=== PATIENT | female | born 1965 | race Caucasian/White ===

== ENCOUNTER 2023-07-28 10:51 | Inpatient (IN) ==
[2023-07-28] MEDS ORDERED: MIDAZOLAM HCL 1 MG/ML 2ML VIAL ONE (11:12)
[2023-07-28] MEDS ORDERED: fentaNYL citrate PF 100 MCG/2 ML VIAL ONE (11:13)
[2023-07-28] MEDS ORDERED: niCARdipine HCL INJ 2.5 MG/ML 10 ML AMP ONE (11:13)
[2023-07-28] MEDS ORDERED: HEPARIN (PORCINE) 1000 UNIT/ML 10 ML (CATH LAB USE ONLY) ONE (11:13)
[2023-07-28] MEDS ORDERED: NITROGLYCERIN/D5W 100MCG/ML 20ML SYR ONE (11:13)
[2023-07-28 11:20] LABS: iSTAT Blood Urea Nitrogen < 3 mg/dl (7-18); iSTAT Carbon Dioxide 16 mmol/L (24-31); iSTAT Chloride 104 mmol/L (101-112); iSTAT Creatinine 0.6 mg/dl (0.6-1.3); iSTAT Glucose 318 mg/dl (70-99); iSTAT Hematocrit 40 % (37-47); iSTAT Hemoglobin 13.6 g/dl (12.0-16.0); iSTAT Ionized Calcium 1.19 mmol/l (1.12-1.32); iSTAT Potassium 5.1 mmol/L (3.3-5.0); iSTAT Sodium 132 mmol/L (135-144)
[2023-07-28] MEDS ORDERED: NOREPINEPHRINE BITARTRATE 1 MG/ML 4 ML VIAL (CATH LAB USE ONLY) IV ONE (11:21)
[2023-07-28] MEDS ORDERED: Standard Conc; 4 MG in 250 mL for HYPOTENSION IV SCH (11:30)
[2023-07-28] MEDS ORDERED: SODIUM BICARB 8.4% INJ 50 MEQ/50 ML SYR IV ONE ×2 (11:35→12:04)
[2023-07-28] MEDS ORDERED: VASOPRESSION #-# Do NOT Titrate #-# Option IV SCH (11:45)
[2023-07-28] MEDS ORDERED: FUROSEMIDE 40 MG/4 ML VIAL IV ONE (12:01)
[2023-07-28 12:04] LABS: INR 1.5 (0.9-1.1); Prothrombin Time 15.6 Seconds (9.0-12.0)
[2023-07-28] MEDS ORDERED: SODIUM BICARBONATE 8.4% 75 MEQ in SODIUM CHLORIDE 0.45 % 1,000 ML IV SCH (12:15)
[2023-07-28 12:19] LABS: Thyroid Stimulating Hormone 11.862 uIu/ml (0.300-4.500)
[2023-07-28 12:24] LABS: Albumin Globulin Ratio 1.5 (0.9-2); Albumin Level 2.3 gm/dl (3.4-5.0); BUN Creatinine Ratio 7.9 (10-20); Bilirubin,Total 0.3 mg/dl (0.2-1.0); Calcium 12.4 mg/dl (8.6-10.3); Creatinine Clr Calc Pharmacy 96.9 ml/min; Globulin 1.5 gm/dl (2.5-4.0); Magnesium 2.7 mg/dl (1.7-2.4); Potassium 4.5 mmol/L (3.5-5.1); Total Protein 3.8 gm/dl (6.0-8.3); Troponin I High Sensitivity 2450.9 pg/ml (0-14)
[2023-07-28] MEDS ORDERED: AMIODARONE 360MG / 200ML D5W (CATH LAB USE ONLY) IV ONE (12:24)
[2023-07-28] MEDS ORDERED: AMIODARONE 150MG / 100ML D5W (CATH LAB USE ONLY) IV ONE (12:25)
[2023-07-28 12:32] LABS: Hemoglobin 12.6 g/dl (12.0-16.0); Mean Corpuscular Hemoglobin 32.5 pg (25.0-34.0); Mean Corpuscular Hgb Conc 30.7 g/dL (32.0-36.0); Mean Corpuscular Volume 105.7 fL (80.0-100.0); Mean Platelet Volume 10.5 fL (9.4-12.4); Nucleated RBC # (auto) 0.06 K/uL (0.00-0.12); Nucleated RBC % (auto) 0.3 %; Platelet Count 73 K/uL (130-400); RDW Coefficient of Variation 12.2 % (11.5-14.5); RDW Standard Deviation 47.8 fL (36.4-46.3); Red Blood Count 3.88 M/uL (4.20-5.40)
[2023-07-28 12:33] LABS: ALC (manual) 3.33 K/uL (1.2-3.4); ANC (manual) 13.88 K/uL (1.4-6.5); Echinocytes 1+; Lymphocytes # (manual) 3.33 K/uL (1.2-3.4); Lymphocytes % (manual) 18 %; Metamyelocytes # (manual) 0.55 K/uL (0-0); Metamyelocytes % (manual) 3 %; Myelocytes # (manual) 0.74 K/uL (0-0); Myelocytes % (manual) 4 %; Neutrophils # (manual) 13.88 K/uL (1.40-6.50); Neutrophils % (manual) 75 %; Platelet Estimate Decreased (Normal); Toxic Vacuolation 3+
--- NOTE | 2023-07-28 12:39 | History & Physical Report ---
Date of Service July 28, 2023 Assessment & Plan (1) Alcohol abuse: Plan: 6-12 beers per day intake, no recent alcohol free days. Last alcohol free day was during a hospital admission at [facility] for low sodium due to poor oral intake/beer potomania more than a year ago. Per family no history of seizures or withdrawal. Thiamine/folic acid daily, AWSS withdrawal symptoms. Unknown last drink. Benzos deferred while observing mental status/anoxic injury. Will monitor for vital instability at this time, reasonable to on continuous EEG monitoring at [facility] (2) Cardiac arrest: Plan: Cardiac arrest, 100% LAD occlusion with resulting VT. S/p ROSC w/ prolonged ACLS Last known normal 8:30 AM 07/28. Was found down unresponsive, apneic, without pulse by scott approximately half hour later. EMS called, initial travel time approximately 20 minutes and in total approximately 2 hours until arrival in ER from initial EMS call. Patient found to be in V-fib. Prior to EMS received 12 epinephrine doses, 2 bicarb, calcium prior to ER arrival. Was intubated in the field. Blood glucose normal. Brief ROSC with subsequent return to PEA with reinstitution of CPR, 5 additional epinephrine, bicarb, calcium, and 300 mg amiodarone bolus with initiation of epinephrine and vasopressin drip. Taken emergently to the dock or pier laborer. Found to have 100% LAD occlusion, s/p 2 LAN Impella placed for augmentation while in P[facility] Initial lactate 17, calcium 12, BSG 318, transaminitis AST 842/ALT 477 Hs-troponin 2450. EKG lateral ST dep while enroute, +multiple episodes of VT and PEA. - K 6.1. s/p fluids + CaGluc. Repeat normalized. While in ER prior to transport to [facility] patient's pupils were fixed and dilated, did not withdrawal to painful stimuli Patient accepted at [facility] for further care, accepted by Dr. Frederick. Pending imminent transport. Admitted to the ICU pending transport Reviewed with family, aware of likely massive WA with prolonged period of downtime which can result in anoxic injury and with guarded/grim prognosis at time of ER assessment. Per scott patient would want to be full code and full measures with additional decisions based on serial exams and progression; they are aware she may have had severe anoxic brain injury and elevated lactate/transaminasis is consistent with multiorgan dysfunction from end organ ischemia. -On reassessment patient remains with ROSC, on epinephrine/vasopressin. Initial VBG 7.1 48/30/16. Trended. Bicarb drip continued. - BSG 318 on admit, no hx DM. ICU hyperglycemia protocol, A1C pending. - CT-H pending (3) Tobacco abuse: History of Present Illness Primary Care Provider: NO PCP Celia Peterson is a 57-year-old female who was found down at approximately 9 AM at home apneic and unresponsive. She presented as a heart alert requiring multiple doses of epinephrine and defibrillation for VT in route to ER. Per report and family: Patient last known normal around 8:30 AM. Was sitting up in bed watching TV, reportedly she felt slightly ill. Was normal the day prior, no recent chest pain, chest pressure, fever/chills/colds or flulike symptoms per fianc. Fianc reports that he went to another car to the house and then returned about half hour later when she was found apneic and unresponsive. He immediately called EMS and performed field CPR until they arrived. Per discussion with ER EMS arrived approximately 20 minutes after initial call. Patient was found to be in ventricular fibrillation and received 2 shocks and 4 doses of epi. Was intubated in the field with a 7.0, [id number] blood glucose was normal. In route to ER Amio drip without bolus was started and patient received an additional 8 doses of epinephrine total. Initial organized rhythm and pulse with BP 120s was achieved but subsequently lost in the ER bay. Patient then received an additional 5 doses of epi, bicarb, calcium, and a 300 mg amiodarone bolus. Placed on epinephrine drip and vasopressin drip was ordered. Proceeded to cardiac P[facility] emergently. By report had diffuse ST depressions/elevations in prehospital EKG. [id number] ER ultrasound with greatly diminished systolic EF Patient had Impella placed while in cardiac [facility] Reportedly with LAD occlusion and possibly circumflex occlusion pending stenting per catheter report at time of HPI Patient is intubated and unresponsive at the bedside on arrival to ER. Col lateral is collected as able from family. Patient's fianc is present at the bedside, reports the patient does not have any known medical history other than a past history of some type of arrhythmia may be flutter but he is not sure if she takes any medications. Notes he did go through her purse and did not find any pill bottles. He does not think she is on any blood thinners. She does not follow with a PCP, he and family do not know if she is seeing a family doctor recently. Last known provider contact was several years ago at [facility] for hip fracture, records requested from that institution. Patient's mother Janel Peterson reportedly in route, may be able to provide additional history. Per fianc patient is a 1 pack/day near lifetime tobacco use Patient does reportedly drink at least 6-12 beers per day, last time she went for more than two thirds 3 days was several years ago during a hip replacement at [facility]. No known withdrawal symptoms/seizures Reportedly with an allergy to "a common medication, but not sure what " Full code Addendum 1256hrs: Pts mother Janel present at [facility]. Confirms pt takes no medications. Past medhx includes hyponatremia for poor PO intake. Allergic to sulfa (rash) and aspirin (rash). Otherwise confirms history from family as above. Full Code. Allergies Allergy/AdvReac Type Severity Reaction Status Date / Time aspirin Allergy Rash Verified 07/28/23 15:09 Sulfa (Sulfonamide Allergy Rash Verified 07/28/23 15:09 Antibiotics) Past Med/Surg History Medical History Dysrhythmia Tobacco abuse Social History Smoking Status: Unknown if ever smoked Preferred Language: Estonian Communication Ability: Unable Civil Draftsman Required: No Beliefs That Will Affect Care: None Current Living Situation: Alone Assistive Devices: Other Review of Systems Review of Systems: Unobtainable due to endotracheal tube Physical Exam Physical Exam: Limited abbreviated exam pending transfer to cardiac catheterization lab ETT in place. Mechanically ventilated, grossly clear Hypotensive, automated BP 50s/40s, weak right radial pulse. Skin with pink color Pupils fixed and dilated No lower extremity edema Does not respond to thumb pinch Results & Data Results & Data Vital Signs (Past 12 Hours) Vital Signs Pulse Pulse Resp BP Pulse Ox O2 Del Method 07/28/23 11:19 69 19 51/41 L 89 L Mechanical Vent 07/28/23 11:17 70 19 46/36 L 90 Mechanical Vent 07/28/23 11:15 72 21 50/36 L 91 Mechanical Vent 07/28/23 11:13 72 19 56/46 L 95 Mechanical Vent 07/28/23 11:08 69 07/28/23 10:59 102 H PG Care Time/CCT Total # of Minutes Spent Total Time Spent with Patient: Total time spent is greater than 50% in coordination of care (as documented) at patient's floor/unit and/or counseling patient: Coding Level of Care Code 95036 INT INP/OBS CARE 3/75MIN Diagnoses Alcohol abuse F10.10 Cardiac arrest I46.9 Tobacco abuse Z72.0
[2023-07-28] MEDS ORDERED: LIDOCAINE HCL/D5W 2000 MG/500 ML BAG IV ONE (12:49)
[2023-07-28 12:56] LABS: T4 Free Thyroxine 0.51 ng/dl (0.61-1.60)
[2023-07-28 13:37] LABS: iSTAT Arterial Blood Gas HCO3 16 meg/L (19-24); iSTAT Arterial Blood Gas pCO2 48 mmHg (35-46); iSTAT Arterial Blood Gas pH 7.13 (7.35-7.45); iSTAT Arterial Blood Gas pO2 38 mmHg (80-95); iSTAT Carbon Dioxide 17 mmol/L (24-31); iSTAT Hematocrit 32 % (37-47); iSTAT Hemoglobin 10.9 g/dl (12.0-16.0); iSTAT Potassium 3.3 mmol/L (3.3-5.0); iSTAT Sodium 139 mmol/L (135-144)
[2023-07-28 13:37] LABS: iSTAT Arterial Blood Gas HCO3 16 meg/L (19-24); iSTAT Arterial Blood Gas pCO2 44 mmHg (35-46); iSTAT Arterial Blood Gas pH 7.17 (7.35-7.45); iSTAT Arterial Blood Gas pO2 106 mmHg (80-95); iSTAT Carbon Dioxide 17 mmol/L (24-31); iSTAT Hematocrit 32 % (37-47); iSTAT Hemoglobin 10.9 g/dl (12.0-16.0); iSTAT Potassium 3.1 mmol/L (3.3-5.0); iSTAT Sodium 141 mmol/L (135-144)
--- NOTE | 2023-07-28 13:44 | Cardiac Catheterization ---
[facility] Data: Orthotic Technician Cardiac Status Clinical evaluation leading to the procedure CAD Presenation: STEMI Diagnostic Physicians Name: Stievn Patel MD Closure Device Recommendations: PCI without planned CABG Cardiac Cath Procedure Full Procedure Date July 28, 2023 Pre-Procedure Diagnosis Pre-Procedure Diagnosis: STEMI AUC Score AUC Score: 9 Post-Procedure Diagnosis Post-Procedure Diagnosis: Severe CAD, Successful PCI and Elevated Intracardiac Pressures Procedure(s) Performed Procedure(s) Performed: Coronary Angiography, Left Heart Cath, Right Heart Cath, Drug Eluting Stent, Ultrasound Guided Vascular Access, Defibrillation and Procedure (Impella CP placement) Soaking Tank Worker Stiven Patel MD Coater Smoking Pipe(s) Deibler Estimated Blood Loss Estimated Blood Loss: 25 Medication(s) Medication(s): Epinephrine, Fentanyl, Heparin, Lidocaine 1%, Nicardipine, Nitroglycerin, Norepinephrine and Versed Medication(s): Ticagrelor Vasopressin Summary of Findings Indication: STEMI/Heart Alert Access: 14 Fr right STOPBOARD ASSEMBLER under ultrasound guidance, 7 Fr right CFV Catheters: Diagnostic JR4, EBU 3.5 guide Findings: LM -calcified, no significant disease LAD -calcified, 50% mid LAD stenosis at takeoff of D1. After D1 LAD small vessel with 70% mid segment disease. Distal vessel small and extends to apex. Large caliber D1 calcified with 100% proximal occlusion. Circumflex -medium caliber, widely patent RCA -dominant, medium caliber, calcified proximally, 50% mid segment disease, distal vessel patent Impella CP placement Persistent cardiogenic shock despite escalating pressors (initially on 0.8 epinephrine, later started on norepinephrine and vasopressin) Right STOPBOARD ASSEMBLER access obtained under ultrasound guidance. Initial angiogram confirmed adequate size iliac vessels Heparin to ACT >250 14 Fr short sheath placed over support wire Aortic valve crossed with pigtail. Initial LVEDP 30. 018 wire placed LV Impella CP device placed across aortic valve. Initial cardiac output 3.5 on auto settings -- PCI -- Antithrombotic therapy: Heparin, ticagrelor post procedure Procedure: Left main cannulated with EBU 3.5 guide Inspector Wreath 50 wire passed across diagonal lesion into distal vessel With the aid of a telescope support catheter proximal diagonal lesion dilated with 2.0 balloon and later 2.5 balloon Second pilot steam yacht 50 wire placed into LAD Ostial to mid diagonal stented with 2.5 x 26 mm Checo drug-eluting stent Stent postdilated with 2.5 NC Attempt made to pass 2.0 balloon into the LAD but unable to pass across stent struts. With MAXX-3 flow in LAD further attempts intervention LAD deferred. Questionable haziness noted at distal end of stent and second LAN (2.5 x 12 mm Checo) overlapped with distal aspect of stent Stent postdilated with stent balloon Post procedure MAXX 3 flow, stent well expanded with minimal residual stenosis and no apparent cardiac complications. During right heart catheterization went into V-fib requiring fibrillation at 200 J x 1 with return to sinus rhythm Impella sutured in place Right heart catheterization post procedure on Impella CP (auto 3.5 L/min), norepinephrine 0.2, epinephrine 0.3, vasopressin 0..) RA 12 RV 34/10 (15) PA 33/17 (22) PAWP 15 PaSat 55% AoSat 96% Rayo CO/CI 4.2/2.4 Summary: 1. Lateral STEMI/acute 100% proximal large first diagonal 2. 70% diffuse mid LAD disease. 3. Cardiogenic shock 4. Ventricular fibrillation 5. Successful PCI of proximal to mid first diagonal with 2 overlapping drug- eluting stents (2.5 x 26, 2.5 x 12 Parker). 6. Successful placement of Impella CP device Recommendations: Transfer to [facility] cardiac intensive care unit for further advance hemodynamic management Hemodynamics Rest Ao:: 56/35/40 Final Ao: 106/89/90 LV: 78/30 Recommendations Recommendations: PCI without planned CABG Specimens Specimens: None Radiation Exposure (mGy) 1924 Contrast (mls) 100 Anesthesia Moderate [id number] Procedural Complication(s) None Disposition ICU I attest to the content of the Intraoperative Record and any orders documented therein. Any exceptions are noted below. [facility] Card Cath Procedure Codes Cardiac Catheterization Procedure 1: Cardiovascular Cath Procedures: 81803 Coronaries & LHC (+/-LV) & RHC Therapeutic Services & Ancillary Procedure 1: Cardiovascular Tx and Anc Procedures: 46588 Cardioversion Procedure 2: Cardiovascular Tx and Anc Procedures: 46719 Insertion of Percutaneous Ventricular Assist Device Procedure 3: Cardiovascular Tx and Anc Procedures: 18475 Ultrasonic Guidance Vascular Access Procedure 4: Cardiovascular Tx and Anc Procedures: 94268 Ultrasonic Guidance Vascular Access Stenting Procedure 1: Cardiovascular Stent Procedures: 26346 Perc transluminal revascularization of acute sub/total occl, aMI PG Care Time/CCT Total # of Minutes Spent Total Time Spent with Patient: Total time spent is greater than 50% in coordination of care (as documented) at patient's floor/unit and/or counseling patient:
[2023-07-28] MEDS ORDERED: TICAGRELOR 90 MG TAB ONE (13:58)
--- NOTE | 2023-07-28 14:30 | Cardiology Consultation ---
Date of Consultation July 28, 2023 Assessment & Plan (1) Cardiac arrest: Patient here with out of hospital cardiac arrest secondary to apparent acute SD, now post prolonged ACLS and with cardiogenic shock and escalating pressor requirements. Plan to proceed with cardiac catheterization and advance hemodynamic support. Further recommendations pending findings of coronary angiography. History of Present Illness Attending Physician: Stiven Patel MD History of Present Illness History received from Dr. Coon in the emergency department and from EMS crew. 57-year-old woman here after cardiac arrest at her home, requiring prolonged ACLS prior to ROSC with ECGs showing lateral ST elevations. Per report this morning initially reported feeling unwell prior to her fianc finding her down <15 minutes later. EMS arrived approximately 20 minutes later and presenting rhythm was VF requiring defibrillation x2 and additional therapy for PEA, intubation prior to ROSC. In route initially had perfusing rhythm but developed VF again just before arrival to ED requiring additional defibrillation. On arrival to ED unresponsive, in sinus rhythm, systolic pressures in the 50s on escalating doses of epinephrine. Total time from last seen well to Aerodynamics Engineer estimated to be 2 hours. Family unaware of significant medical issues. Reports that patient may have seen a copyright clerk in the past for an arrhythmia was on the medications. Ongoing smoker. Heavy daily alcohol use. Allergies Allergy/AdvReac Type Severity Reaction Status Date / Time aspirin Allergy Rash Verified 07/28/23 15:09 Sulfa (Sulfonamide Allergy Rash Verified 07/28/23 15:09 Antibiotics) Patient History Medical History Dysrhythmia Tobacco abuse Social History Smoking Status: Unknown if ever smoked Review of Systems Review of Systems: Unobtainable due to cognitive status and Unobtainable due to endotracheal tube Physical Exam Eyes: + anicteric sclerae and + dilated pupils Neck: ETT in place Respiratory: Clear anteriorly Cardiovascular: Rate/Rhythm: regular rate Heart Sounds: no murmur Vessels: femoral pulses present Distal extremities cool, cyanotic Gastrointestinal (Abdomen): Percussion/Palpation: abdomen soft Psychiatric: Orientation: + not alert Unresponsive Results & Data Vital Signs (Past 12 Hours) Vital Signs Pulse Pulse Resp BP Pulse Ox O2 Del Method 07/28/23 11:19 69 19 51/41 L 89 L Mechanical Vent 07/28/23 11:17 70 19 46/36 L 90 Mechanical Vent 07/28/23 11:15 72 21 50/36 L 91 Mechanical Vent 07/28/23 11:13 72 19 56/46 L 95 Mechanical Vent 07/28/23 11:08 69 07/28/23 10:59 102 H PG Care Time/CCT Total # of Minutes Spent Total Time Spent with Patient: Total time spent is greater than 50% in coordination of care (as documented) at patient's floor/unit and/or counseling patient: Coding Level of Care Code 44424 IN/OBS CONSULT LVL 5,80M Diagnoses Cardiac arrest I46.9
--- NOTE | 2023-07-28 15:10 | Discharge Summary ---
Date of Service July 28, 2023 Admission HPI Per Admitting Provider Celia Peterson is a 57-year-old female who was found down at approximately 9 AM at home apneic and unresponsive. She presented as a heart alert requiring multiple doses of epinephrine and defibrillation for VT in route to ER. Per report and family: Patient last known normal around 8:30 AM. Was sitting up in bed watching TV, reportedly she felt slightly ill. Was normal the day prior, no recent chest pain, chest pressure, fever/chills/colds or flulike symptoms per fianc. Ficheryl reports that he went to another car to the house and then returned about half hour later when she was found apneic and unresponsive. He immediately called EMS and performed field CPR until they arrived. Per discussion with ER EMS arrived approximately 20 minutes after initial call. Patient was found to be in ventricular fibrillation and received 2 shocks and 4 doses of epi. Was intubated in the field with a 7.0, [id number] blood glucose was normal. In route to ER Amio drip without bolus was started and patient received an additional 8 doses of epinephrine total. Initial organized rhythm and pulse with BP 120s was achieved but subsequently lost in the ER bay. Patient then received an additional 5 doses of epi, bicarb, calcium, and a 300 mg amiodarone bolus. Placed on epinephrine drip and vasopressin drip was ordered. Proceeded to cardiac Surveillance Systems Analyst emergently. By report had diffuse ST depressions/elevations in prehospital EKG. [id number] ER ultrasound with greatly diminished systolic EF Patient had Impella placed while in cardiac Surveillance Systems Analyst Reportedly with LAD occlusion and possibly circumflex occlusion pending stenting per catheter report at time of HPI Patient is intubated and unresponsive at the bedside on arrival to ER. Collateral is collected as able from family. Patient's fianc is present at the bedside, reports the patient does not have any known medical history other than a past history of some type of arrhythmia may be flutter but he is not sure if she takes any medications. Notes he did go through her purse and did not find any pill bottles. He does not think she is on any blood thinners. She does not follow with a PCP, he and family do not know if she is seeing a family doctor recently. Last known provider contact was several years ago at [facility] for hip fracture, records requested from that institution. Patient's mother Janel Peterson reportedly in route, may be able to provide additional history. Per scott patient is a 1 pack/day near lifetime tobacco use Patient does reportedly drink at least 6-12 beers per day, last time she went for more than two thirds 3 days was several years ago during a hip replacement at [facility]. No known withdrawal symptoms/seizures Reportedly with an allergy to "a common medication, but not sure what " Full code Addendum [id number]: [facility] Confirms pt takes no medications. Past medhx includes hyponatremia for poor PO intake. Allergic to sulfa (rash) and aspirin (rash). Otherwise confirms history from family as above. Full Code. Principal Diagnosis Cardiac arrest, VF 2/2 LAD 100% occlusion s/p PCI & Impella placement Discharge Exam Limited abbreviated exam pending transfer to cardiac catheterization lab ETT in place. Mechanically ventilated, grossly clear Hypotensive, automated BP 50s/40s, weak right radial pulse. Skin with pink color Pupils fixed and dilated No lower extremity edema Does not respond to thumb pinch Discharge Data Allergies Allergy/AdvReac Type Severity Reaction Status Date / Time aspirin Allergy Rash Verified 07/28/23 15:09 Sulfa (Sulfonamide Allergy Rash Verified 07/28/23 15:09 Antibiotics) Consultations 07/28/23 12:07 Consult Manager Workers Compensation Routine Procedures Performed Operation Date: 07/28/23 11:15 <No data on this case meets the specified criteria> Ordered Studies 07/28/23 11:13 CL Cath Imgs for PACS use only Stat Hospital Course (1) Alcohol abuse: 6-12 beers per day intake, no recent alcohol free days. Last alcohol free day was during a hospital admission at [facility] for low sodium due to poor oral intake/beer potomania more than a year ago. Per family no history of seizures or withdrawal. Thiamine/folic acid daily, AWSS withdrawal symptoms. Unknown last drink. Benzos deferred while observing mental status/anoxic injury. Will monitor for vital instability at this time, reasonable to on continuous EEG monitoring at [facility] [facility] (2) Cardiac arrest: Cardiac arrest, 100% LAD occlusion with resulting VT. S/p ROSC w/ prolonged ACLS Last known normal 8:30 AM 07/28. Was found down unresponsive, apneic, without pulse by scott approximately half hour later. EMS called, initial travel time approximately 20 minutes and in total approximately 2 hours until arrival in ER from initial EMS call. Patient found to be in V-fib. Prior to EMS received 12 epinephrine doses, 2 bicarb, calcium prior to ER arrival. Was intubated in the field. Blood glucose normal. Brief ROSC with subsequent return to PEA with reinstitution of CPR, 5 additional epinephrine, bicarb, calcium, and 300 mg amiodarone bolus with initiation of epinephrine and vasopressin drip. Taken emergently to the director of labor relations. Found to have 100% LAD occlusion, s/p 2 LAN Impella placed for augmentation while in Surveillance Systems Analyst Initial lactate 17, calcium 12, BSG 318, transaminitis AST 842/ALT 477 Hs-troponin 2450. EKG lateral ST dep while enroute, +multiple episodes of VT and PEA. - K 6.1. s/p fluids + CaGluc. Repeat normalized. While in ER prior to transport to Surveillance Systems [employer]st patient's pupils were fixed and dilated, did not withdrawal to painful stimuli Patient accepted at [facility] for further care, accepted by Dr. Frederick. Transported to [facility] by Dayan Bernicealexander Reviewed with family, aware of likely massive WA with prolonged period of downtime which can result in anoxic injury and with guarded/grim prognosis at time of ER assessment. Per scott patient would want to be full code and full measures with additional decisions based on serial exams and progression; they are aware she may have had severe anoxic brain injury and elevated lactate/transaminasis is consistent with multiorgan dysfunction from end organ ischemia. -On reassessment patient remains with ROSC, on epinephrine/vasopressin. Initial VBG 7.1 /16. Trended. Bicarb drip continued. - BSG 318 on admit, no hx DM. ICU hyperglycemia protocol, A1C pending. - CT-H pending (3) Tobacco abuse: Total Time Total Time Spent Total Time Spent (In Minutes): Time spend day of discharge 60 minutes including direct patient care, documenta tion, review of labs and images, and coordination of care. Discharge Plan Discharge Items Patient Disposition: Transfer Acute Care Hospital Reason For Visit: HEART ALERT Discharge Diagnosis: Cardiac Arrest, LAD occlusion Activity: Per Instructions section Non-emergency contact: Hospitalist Call non-emergency contact if: you have any medication questions Follow-up/Referrals: PCP,NO [Primary Care Provider] - Diet: Nothing by Mouth Addtl Attending Provider Instructions: Cardiac arrest, 100% LAD occlusion with resulting VT. S/p ROSC w/ prolonged ACLS Last known normal 8:30 AM 07/28. Was found down unresponsive, apneic, without pulse by scott approximately half hour later. EMS called, initial travel time approximately 20 minutes and in total approximately 2 hours until arrival in ER from initial EMS call. Patient found to be in V-fib. Prior to EMS received 12 epinephrine doses, 2 bicarb, calcium prior to ER arrival. Was intubated in the field. Blood glucose normal. Brief ROSC with subsequent return to PEA with reinstitution of CPR, 5 additional epinephrine, bicarb, calcium, and 300 mg amiodarone bolus with initiation of epinephrine and vasopressin drip. Taken emergently to the director of labor relations. Found to have 100% LAD occlusion, s/p 2 LAN Impella placed for augmentation while in Surveillance Systems Analyst Initial lactate 17, calcium 12, BSG 318, transaminitis AST 842/ALT 477 Hs-troponin 2450. EKG lateral ST dep while enroute, +multiple episodes of VT and PEA. - K 6.1. s/p fluids + CaGluc. Repeat normalized. While in ER prior to transport to Surveillance Systems Analyst patient's pupils were fixed and dilated, did not withdrawal to painful stimuli Patient accepted at [facility] for further care, accepted by Dr. Frederick. Transported to [facility] by [facility] Reviewed with family, aware of likely massive WA with prolonged period of downtime which can result in anoxic injury and with guarded/grim prognosis at time of ER assessment. Per scott patient would want to be full code and full measures with additional decisions based on serial exams and progression; they are aware she may have had severe anoxic brain injury and elevated lactate/transaminasis is consistent with multiorgan dysfunction from end organ ischemia. -On reassessment patient remains with ROSC, on epinephrine/vasopressin. Initial VBG 7.1 //16. Trended. Bicarb drip continued. - BSG 318 on admit, no hx DM. ICU hyperglycemia protocol, A1C pending. - CT-H pending Pending Studies at Discharge: Yes Studies:: CT-H, echo Stand-Alone Forms: My [facility] Skilled Items Patient informed of condition?: Yes DNR: No Discharge Level of Care: Other Communicable Disease: No Discharge Prognosis: Other Lines: Peripheral IV Urinary Catheter: Yes Medications and DC Order Discharge Orders: Discharge Order (Routine); Ordered 07/28/23 Ordered By: Williams Magaña Admission Data Admit Date/Time: 07/28/23 12:07 Attending Provider: Patrick Patel Admit Provider: Patrick Patel Primary Care Provider: PCP,NO Other Providers: Richi Lucas Coding Level of Care Code 48060 INP/OBS DISCH >30 MIN Diagnoses Alcohol abuse F10.10 Cardiac arrest I46.9 Tobacco abuse Z72.0
[2023-07-28 16:29] LABS: iSTAT Creatinine 0.6 mg/dl (0.6-1.3); iSTAT Hemoglobin 11.2 g/dl (12.0-16.0); iSTAT Ionized Calcium 1.16 mmol/l (1.12-1.32); iSTAT Potassium 3.3 mmol/L (3.3-5.0)
[2023-07-28 16:29] LABS: iSTAT Arterial Blood Gas HCO3 12 meg/L (19-24); iSTAT Arterial Blood Gas pCO2 59 mmHg (35-46); iSTAT Arterial Blood Gas pH 6.91 (7.35-7.45); iSTAT Arterial Blood Gas pO2 122 mmHg (80-95); iSTAT Carbon Dioxide 14 mmol/L (24-31); iSTAT Hematocrit 33 % (37-47); iSTAT Hemoglobin 11.2 g/dl (12.0-16.0); iSTAT Potassium 3.3 mmol/L (3.3-5.0); iSTAT Sodium 132 mmol/L (135-144)
[2023-07-28 16:29] LABS: iSTAT Arterial Blood Gas HCO3 18 meg/L (19-24); iSTAT Arterial Blood Gas pCO2 53 mmHg (35-46); iSTAT Arterial Blood Gas pH 7.14 (7.35-7.45); iSTAT Arterial Blood Gas pO2 55 mmHg (80-95); iSTAT Carbon Dioxide 19 mmol/L (24-31); iSTAT Hematocrit 33 % (37-47); iSTAT Hemoglobin 11.2 g/dl (12.0-16.0); iSTAT Potassium 3.1 mmol/L (3.3-5.0); iSTAT Sodium 140 mmol/L (135-144)
[2023-07-28 16:29] LABS: iSTAT Arterial Blood Gas HCO3 29 meg/L (19-24); iSTAT Arterial Blood Gas pCO2 105 mmHg (35-46); iSTAT Arterial Blood Gas pH 7.05 (7.35-7.45); iSTAT Arterial Blood Gas pO2 67 mmHg (80-95); iSTAT Carbon Dioxide 32 mmol/L (24-31); iSTAT Hematocrit 30 % (37-47); iSTAT Hemoglobin 10.2 g/dl (12.0-16.0); iSTAT Potassium 3.9 mmol/L (3.3-5.0); iSTAT Sodium 149 mmol/L (135-144)
[2023-07-28] MEDS ORDERED: ICU Protocol for HYPERglycemia SCH (16:30)
--- NOTE | 2023-07-28 17:39 | Emergency Department Note ---
Impression & Plan Cardiac arrest, Acute respiratory failure, Acute myocardial infarction ED Provider Note ED Provider Note NAME: JAMIN KAM AGE:57 SEX: Female : 1965 ARRIVES VIA: EMS INFORMANT: EMS ED PROVIDER(s): Azalea Coon DO CHIEF COMPLAINT: Cardiac arrest HPI: This is a 57-year-old female brought in by EMS following a cardiac arrest. Per EMS patient was found unresponsive by her significant other and bystander CPR started. They state it took approximately 20 minutes for them to get to the house where patient was found to be in ventricular fibrillation initially. She was defibrillated twice and additional ACLS including CPR was started. Patient was intubated by the systems programmer analyst with a 7 oh ET tube without difficulty per the report. They initially called for medical command and stated at that point in time they have given the patient for epinephrine rounds and 1 round of bicarb, had IV fluids running and patient was asystolic. They then called back stating they had an organized rhythm and at that point had given an additional 4 rounds of epi, and hung an epi drip. They state patient did intermittently have PEA additionally. I instructed them to give additional bicarb as well as an amp of calcium. End-tidal at that time was 50, IV fluids were running additionally and they were trying to get a blood pressure. They reported family stated that she complained prior to going unresponsive of not feeling well. They reported family stated she had a history of an abnormal heart rhythm but did not know what medication she took and that she was a smoker. No additional information about the patient was available. On arrival here EMS had just lost pulses, CPR was started again via the Jer device, and they had just given an additional dose of epinephrine. PAST MEDICAL HISTORY:See Below PAST SURGICAL HISTORY:See Below FAMILY HISTORY:See Below SOCIAL HISTORY:See Below HOME MEDICATIONS:See Below ALLERGIES:See Below VITALS:See Below PHYSICAL EXAMINATION: GENERAL: Unresponsive EYE EXAM: Fixed and dilated bilaterally OROPHARYNX: ET tube in place NECK: supple, EJ noted on the right LUNGS: Equal chest rise and fall with bagging, bibasilar Rales HEART: No pulse ABDOMEN: abdomen soft, no masses, no ecchymosis BACK: Back is symmetrical on inspection and there is no deformity SKIN: no rashes, petechiae, orbruising UPPER EXTREMITIES: upper extremities are grossly normal. FROM, nml pulses b/l. LOWER EXTREMITIES: No pitting edema. FROM, nml pulses b/l. NEURO EXAM: Normal sensorium, cranial nerves II-XII grossly intact, normal speech, no facial droop,nogross weakness of arms, no gross weakness of legs. Gross sensation intact. No ataxia. Vital Signs: reviewed and remarkable Differential Diagnosis: ACS, dysrhythmia, ICH, CVA, electrolyte abnormality, infection, trauma, as well as others were considered MEDICAL DECISION MAKING: This is a 57-year-old female who presents via EMS as a cardiac arrest. Upon arrival Jer device was providing CPR, patient was being bagged through an ET tube. Patient given additional epinephrine, bicarb, and calcium. Epi drip hung. EMS reports they had additionally given an amiodarone drip however no bolus. Patient given amiodarone 300 mg here IV bolus. Labs drawn and sent, additional access obtained, IV fluids continued, patient monitored on telemetry. Patient able to be bagged here by RT without difficulty, no secretions noted in the tube. After additional medications given a pulse and rhythm check was performed, patient noted to be in V-fib again with no palpable pulse. She was defibrillated again and glucose reactivated. Patient given several more doses of epinephrine after arrival here and on recheck did have an organized rhythm and a faint palpable pulse. Repeat EKG did show ST elevations and depressions. Epinephrine drip was titrated up due to ongoing hypotension. I did perform bedside ultrasound which did show minimal cardiac contractility and trace pericardial effusion. Case discussed with interventional cardiology Dr. Patel who came and saw the patient at bedside. He and I discussed the critical nature of the patient with family at bedside. They were in agreement with plan for emergent cardiac catheterization. Labs still pending when patient was taken urgently to cath. Case discussed with Dr. Chaves additionally, hospitalist team in case patient admitted here. Consultation(s): 1120: Discussed with Dr. Patel. ER Treatment Provided: See below Diagnostics Interpreted By Me: -ECG: Normal sinus at 72, first-degree AV block, rightward axis, normal QRS but prolonged QTc, ST depression noted in 2, 3, aVF, elevation in aVR, 1, aVL -Cardiac Monitoring: An order was placed for continuous cardiac monitoring. The monitor shows a rate of 77 with normal sinus rhythm. -Laboratory studies: As stated above and show below. -Imaging studies: [] Triage Nursing Note Reviewed Prior/Outside Records Reviewed Procedures: [] Critical Care: Critical care of 40 min performed to assess and manage high likelihood of life- threatening cardiac arrest, involving labs and imaging performed with assessment to evaluate cardiac arrest diagnosis with frequent reassessment. This time includes bedside time, treatment discussions with patient/family/consultants, documentation time and excludes procedure time. Past Med/Surg History Medical History Dysrhythmia Tobacco abuse Social History Smoking Status: Unknown if ever smoked Preferred Language: Colombian Communication Ability: Unable Patient Support Tech Required: No Beliefs That Will Affect Care: None Current Living Situation: Alone Assistive Devices: Other Allergies Allergies Allergy/AdvReac Type Severity Reaction Status Date / Time aspirin Allergy Rash Verified 07/28/23 15:09 Sulfa (Sulfonamide Allergy Rash Verified 07/28/23 15:09 Antibiotics) Results & Data (ED) Vital Signs Vital Signs - 24 hr 07/28/23 10:59 07/28/23 11:08 07/28/23 10:55 Pulse Rate 102 H 69 Pulse Rate [Apical] Respiratory Rate Blood Pressure [Left Arm] Blood Pressure Mean [Left Arm] Pulse Oximetry Oxygen Delivery Method Fraction of Inspired Oxygen Sepsis Recent Fever Within 48 Hours No Sepsis New/Unexplained Change in Mental Status No Sepsis Action Taken by Nursing No Action Required End-Tidal CO2 07/28/23 11:13 07/28/23 11:15 07/28/23 11:17 Pulse Rate Pulse Rate [Apical] 72 72 70 Respiratory Rate 19 21 19 Blood Pressure [Left Arm] 56/46 L 50/36 L 46/36 L Blood Pressure Mean [Left Arm] 49 40 39 Pulse Oximetry 95 91 90 Oxygen Delivery Method Mechanical Vent Mechanical Vent Mechanical Vent Fraction of Inspired Oxygen Sepsis Recent Fever Within 48 Hours Sepsis New/Unexplained Change in Mental Status Sepsis Action Taken by Nursing End-Tidal CO2 07/28/23 11:19 07/28/23 11:40 07/28/23 12:05 Pulse Rate 69 Pulse Rate [Apical] 69 Respiratory Rate 19 20 28 H Blood Pressure [Left Arm] 51/41 L Blood Pressure Mean [Left Arm] 44 Pulse Oximetry 89 L 90 Oxygen Delivery Method Mechanical Vent Fraction of Inspired Oxygen 100 100 Sepsis Recent Fever Within 48 Hours Sepsis New/Unexplained Change in Mental Status Sepsis Action Taken by Nursing End-Tidal CO2 20 Laboratory Data 07/28/23 11:09 07/28/23 11:09 Lab Results 07/28/23 07/28/23 07/28/23 Range/Units 11:06 11:09 11:09 WBC 18.50 H (4.8-10.8) K/ul RBC 3.88 L (4.20-5.40) M/uL Hgb 12.6 (12.0-16.0) g/dl POC Hgb 13.6 (12.0-16.0) g/dl Hct 41.0 (37.0-47.0) % POC Hct 40 (37-47) % MCV 105.7 H (80.0-100.0) fL MCH 32.5 (25.0-34.0) pg MCHC 30.7 L (32.0-36.0) g/dL RDW Std Deviation 47.8 H (36.4-46.3) fL RDW Coeff of Eddie 12.2 (11.5-14.5) % Plt Count 73 L (130-400) K/uL MPV 10.5 (9.4-12.4) fL Absolute Nucleated RBC 0.06 (0.00-0.12) K/uL Nucleated RBC % (auto) 0.3 % Neutrophils % (Manual) 75 % Lymphocytes % (Manual) 18 % Metamyelocytes % (Man) 3 % Myelocytes % (Man) 4 % Neutrophils # (Manual) 13.88 H (1.40-6.50) K/uL Total Absolute Neuts 13.88 H (1.4-6.5) K/uL Lymphocytes # (Manual) 3.33 (1.2-3.4) K/uL Total Abs Lymphocytes 3.33 (1.2-3.4) K/uL Metamyelocytes # (Man) 0.55 H (0-0) K/uL Myelocytes # (Manual) 0.74 H (0-0) K/uL Toxic Vacuolation 3+ Platelet Estimate Decreased L (Normal) Echinocytes 1+ PT 15.6 H (9.0-12.0) Seconds INR 1.5 H (0.9-1.1) POC pH (7.35-7.45) POC pCO2 (35-46) mmHg POC pO2 (80-95) mmHg POC HCO3 (19-24) yuri/L POC Base Excess (-9-1.8) yuri/L POC ABG O2 Sat (90-95) % POC Sodium 132 L (135-144) mmol/L Sodium (136-145) mmol/L POC Potassium 5.1 H (3.3-5.0) mmol/L Potassium (3.5-5.1) mmol/L POC Chloride 104 (101-112) mmol/L Chloride (98-107) mmol/L Carbon Dioxide (21-32) mmol/L POC Total CO2 16 L (24-31) mmol/L Anion Gap (3-11) POC Anion Gap 18.0 (16-25) mmol/L POC BUN < 3 L (7-18) mg/dl BUN (6-23) mg/dl Creatinine (0.6-1.2) mg/dl POC Creatinine 0.6 (0.6-1.3) mg/dl Est Cr Clr Drug Dosing ml/min Est GFR ( Amer) ml/min Est GFR (Non-Af Amer) ml/min BUN/Creatinine Ratio (10-20) Glucose (70-99(Fasting)) mg/dl POC Glucose (other) 318 H (70-99) mg/dl Calcium (8.6-10.3) mg/dl POC Ioniz Calcium Juan Manuel 1.19 (1.12-1.32) mmol/l Magnesium (1.7-2.4) mg/dl Total Bilirubin (0.2-1.0) mg/dl AST (13-39) U/L ALT (7-52) U/L Alkaline Phosphatase (34-104) U/L Troponin I High Sens (0-14) pg/ml Total Protein (6.0-8.3) gm/dl Albumin (3.4-5.0) gm/dl Globulin (2.5-4.0) gm/dl Albumin/Globulin Ratio (0.9-2) Lipase (11-82) U/L TSH (0.300-4.500) uIu/ml Free T4 (0.61-1.60) ng/dl 07/28/23 07/28/23 07/28/23 Range/Units 11:09 11:09 11:44 WBC (4.8-10.8) K/ul RBC (4.20-5.40) M/uL Hgb (12.0-16.0) g/dl POC Hgb 10.2 L (12.0-16.0) g/dl Hct (37.0-47.0) % POC Hct 30 L (37-47) % MCV (80.0-100.0) fL MCH (25.0-34.0) pg MCHC (32.0-36.0) g/dL RDW Std Deviation (36.4-46.3) fL RDW Coeff of Eddie (11.5-14.5) % Plt Count (130-400) K/uL MPV (9.4-12.4) fL Absolute Nucleated RBC (0.00-0.12) K/uL Nucleated RBC % (auto) % Neutrophils % (Manual) % Lymphocytes % (Manual) % Metamyelocytes % (Man) % Myelocytes % (Man) % Neutrophils # (Manual) (1.40-6.50) K/uL Total Absolute Neuts (1.4-6.5) K/uL Lymphocytes # (Manual) (1.2-3.4) K/uL Total Abs Lymphocytes (1.2-3.4) K/uL Metamyelocytes # (Man) (0-0) K/uL Myelocytes # (Manual) (0-0) K/uL Toxic Vacuolation Platelet Estimate (Normal) Echinocytes PT (9.0-12.0) Seconds INR (0.9-1.1) POC pH 7.05 L* (7.35-7.45) POC pCO2 105 H (35-46) mmHg POC pO2 67 L (80-95) mmHg POC HCO3 29 H (19-24) yuri/L POC Base Excess -1.0 (-9-1.8) yuri/L POC ABG O2 Sat 81.0 L (90-95) % POC Sodium 149 H (135-144) mmol/L Sodium 137 (136-145) mmol/L POC Potassium 3.9 (3.3-5.0) mmol/L Potassium 4.5 (3.5-5.1) mmol/L POC Chloride (101-112) mmol/L Chloride 103 (98-107) mmol/L Carbon Dioxide 14 L (21-32) mmol/L POC Total CO2 32 H (24-31) mmol/L Anion Gap 20 H (3-11) POC Anion Gap (16-25) mmol/L POC BUN (7-18) mg/dl BUN 5 L (6-23) mg/dl Creatinine 0.63 (0.6-1.2) mg/dl POC Creatinine (0.6-1.3) mg/dl Est Cr Clr Drug Dosing 96.9 ml/min Est GFR ( Amer) 117.0 ml/min Est GFR (Non-Af Amer) 101.0 ml/min BUN/Creatinine Ratio 7.9 L (10-20) Glucose 351 H* (70-99(Fasting)) mg/dl POC Glucose (other) (70-99) mg/dl Calcium 12.4 H* (8.6-10.3) mg/dl POC Ioniz Calcium Juan Manuel (1.12-1.32) mmol/l Magnesium 2.7 H (1.7-2.4) mg/dl Total Bilirubin 0.3 (0.2-1.0) mg/dl AST 842 H (13-39) U/L ALT 477 H (7-52) U/L Alkaline Phosphatase 156 H (34-104) U/L Troponin I High Sens 2450.9 H* (0-14) pg/ml Total Protein 3.8 L (6.0-8.3) gm/dl Albumin 2.3 L (3.4-5.0) gm/dl Globulin 1.5 L (2.5-4.0) gm/dl Albumin/Globulin Ratio 1.5 (0.9-2) Lipase 103 H (11-82) U/L TSH 11.862 H (0.300-4.500) uIu/ml Free T4 0.51 L (0.61-1.60) ng/dl 07/28/23 Range/Units 12:03 WBC (4.8-10.8) K/ul RBC (4.20-5.40) M/uL Hgb (12.0-16.0) g/dl POC Hgb 11.2 L (12.0-16.0) g/dl Hct (37.0-47.0) % POC Hct 33 L (37-47) % MCV (80.0-100.0) fL MCH (25.0-34.0) pg MCHC (32.0-36.0) g/dL RDW Std Deviation (36.4-46.3) fL RDW Coeff of Eddie (11.5-14.5) % Plt Count (130-400) K/uL MPV (9.4-12.4) fL Absolute Nucleated RBC (0.00-0.12) K/uL Nucleated RBC % (auto) % Neutrophils % (Manual) % Lymphocytes % (Manual) % Metamyelocytes % (Man) % Myelocytes % (Man) % Neutrophils # (Manual) (1.40-6.50) K/uL Total Absolute Neuts (1.4-6.5) K/uL Lymphocytes # (Manual) (1.2-3.4) K/uL Total Abs Lymphocytes (1.2-3.4) K/uL Metamyelocytes # (Man) (0-0) K/uL Myelocytes # (Manual) (0-0) K/uL Toxic Vacuolation Platelet Estimate (Normal) Echinocytes PT (9.0-12.0) Seconds INR (0.9-1.1) POC pH 6.91 L* (7.35-7.45) POC pCO2 59 H (35-46) mmHg POC pO2 122 H (80-95) mmHg POC HCO3 12 L (19-24) yuri/L POC Base Excess -21.0 L (-9-1.8) yuri/L POC ABG O2 Sat 95.0 (90-95) % POC Sodium 132 L (135-144) mmol/L Sodium (136-145) mmol/L POC Potassium 3.3 (3.3-5.0) mmol/L Potassium (3.5-5.1) mmol/L POC Chloride (101-112) mmol/L Chloride (98-107) mmol/L Carbon Dioxide (21-32) mmol/L POC Total CO2 14 L (24-31) mmol/L Anion Gap (3-11) POC Anion Gap (16-25) mmol/L POC BUN (7-18) mg/dl BUN (6-23) mg/dl Creatinine (0.6-1.2) mg/dl POC Creatinine (0.6-1.3) mg/dl Est Cr Clr Drug Dosing ml/min Est GFR ( Amer) ml/min Est GFR (Non-Af Amer) ml/min BUN/Creatinine Ratio (10-20) Glucose (70-99(Fasting)) mg/dl POC Glucose (other) (70-99) mg/dl Calcium (8.6-10.3) mg/dl POC Ioniz Calcium Juan Manuel (1.12-1.32) mmol/l Magnesium (1.7-2.4) mg/dl Total Bilirubin (0.2-1.0) mg/dl AST (13-39) U/L ALT (7-52) U/L Alkaline Phosphatase (34-104) U/L Troponin I High Sens (0-14) pg/ml Total Protein (6.0-8.3) gm/dl Albumin (3.4-5.0) gm/dl Globulin (2.5-4.0) gm/dl Albumin/Globulin Ratio (0.9-2) Lipase (11-82) U/L TSH (0.300-4.500) uIu/ml Free T4 (0.61-1.60) ng/dl Administered Medications Discontinued Medications Epinephrine HCl () 4 mg in 254 mls @ 5.334 mls/hr IV .Q24H YOLA; Protocol Stop: 08/27/23 11:29 Last Titration: 07/28/23 11:18 Dose: 0.8 mcg/kg/min, 213.4 mls/hr Documented By: Titration: 07/28/23 11:16 Dose: 0.5 mcg/kg/min, 133.4 mls/hr Documented By: Titration: 07/28/23 11:15 Dose: 0.2 mcg/kg/min, 53.3 mls/hr Documented By: Admin: 07/28/23 11:09 Dose: 0.1 mcg/kg/min, 26.7 mls/hr Documented By: RISSA Co-signed By: ALYSSA Discharge Plan Visit Data Chief Complaint: Cardiac Arrest/CPR Stated Complaint: POST CARDIAC ARREST, EKG CHANGES ED Provider: Azalea Coon Discharge Problem: Cardiac arrest, Acute respiratory failure, Acute myocardial infarction Patient Disposition: Admitted As Inpatient
[2023-07-29 07:34] LABS: iSTAT Allen Test Pass; iSTAT Art Bld Gas pCO2 Correct 35 mmHg (35-46); iSTAT Art Bld Gas pH Corrected 7.233 (7.35-7.45); iSTAT Arterial Blood Gas HCO3 15 meg/L (19-24); iSTAT Arterial Blood Gas pCO2 35 mmHg (35-46); iSTAT Arterial Blood Gas pH 7.23 (7.35-7.45); iSTAT Arterial Blood Gas pO2 92 mmHg (80-95); iSTAT Arterial Blood Gas pO2 C 92; iSTAT Carbon Dioxide 16 mmol/L (24-31); iSTAT FiO2 100 %; iSTAT Hematocrit 34 % (37-47); iSTAT Hemoglobin 11.6 g/dl (12.0-16.0); iSTAT Site L Radial; iSTAT Sodium 139 mmol/L (135-144)
--- NOTE | 2023-07-31 17:04 | Electrocardiogram Report ---
Test Reason : Blood Pressure : / mmHG Vent. Rate : 072 BPM Atrial Rate : 072 BPM P-R Int : 352 ms QRS Dur : 152 ms QT Int : 494 ms P-R-T Axes : 000 116 053 degrees QTc Int : 540 ms Junctional rhythm Right axis deviation Anterior infarct ST elevation, consider injury pattern Non-specific intra-ventricular conduction block Prolonged QT Abnormal ECG No previous ECGs available Confirmed by Ronny Rivers ([id number]) on 07/31/2023 5:04:08 PM Referred By: Confirmed By:Ronny Rivers
== END 2023-07-28 16:22 | disposition short-term general hospital (02) | DRG 215 ==
LOC: ED 10:51 → CC 11:23 → 1E 12:07
PROC: CLB.CRH (2023-07-28 11:15)